=== PATIENT | female | born 1970 | race Caucasian/White ===

== ENCOUNTER 2025-04-17 10:46 | Day surgery (SDC) | payer OTHER, SELFPAY ==
[2025-04-12 12:58] VITALS: BMI 34.0
[2025-04-17] VITALS (7 sets, daily range): BP systolic 126–153; BP diastolic 61–89; PULSE 79–92; RESP 14–17; TEMP 36.3–36.5; O2SAT 96–99
[2025-04-17] MEDS: LACTATED RINGERS 1,000 ML 42 ML IV ×2 (11:43→15:15)
--- NOTE | 2025-04-17 14:20 | PM.PREOP ---
Pre-operative Note COVID-19 COVID-19 status: Not tested Interval Note History & Physical reviewed/Exam performed by Physician: Yes Changes to H&P: No
[2025-04-17] MEDS: SCOPOLAMINE 1 PATCH TOP (15:18)
--- NOTE | 2025-04-17 15:22 | SUR.OPER ---
Supine on padded OR bed, head on pillow, arms secured on padded arm boards at <90 degrees abduction, legs uncrossed, safety belt at thigh, tape over blanket over lower legs. Arthroscopy knee positioner on operative side. All pressure points padded and protected.
[2025-04-17] MEDS: SODIUM CHLORIDE IRRIG SOLUTION 3,000 ML, EPINEPHrine 3 MG IRR (15:31)
[2025-04-17] MEDS: ACETAMINOPHEN IV 1,000 MG/100 ML VIAL 400 MG IV (15:45)
--- NOTE | 2025-04-17 15:54 | PM.OP.1 ---
Operative Date/Time/Diagnoses Date of procedure: 04/17/25 Time of procedure: 03:00 Pre-op diagnosis: see below Post-op diagnosis: other (see below) Procedure & Clinicians Procedure: 1) left knee fat pad debridement 2) Medial femoral chondroplasty and patella chondroplasty Same procedure(s) as scheduled: Yes Surgeon: Aileen Valenzuela Assisted?: Yes Satellite Television Installer: Sheri Mccray Anesthesia Type: General Operative Notes Findings: see below Closure Type: primary Specimen(s): none sent Applied: none Estimated Blood Loss (mL): 10 Blood products transfused: none Tourniquet time (min): 21 Procedure in detail: Preoperative diagnosis: Left Medial meniscus root tear Procedure performed: 1) left knee fat pad debridement 2) Medial femoral chondroplasty and patella chondroplasty Postoperative diagnosis: 1) left knee exuberant fat pad 2) medial femoral condyle chondroplasty Primary Surgeon: Aileen Valenzuela, DO Satellite Television Installer:? Sheri Mccray PA-C Anesthesia: General LMA EBL: 10 ml Tourniquet: ?21 minutes @ 250 mmHg Implants: none Indication For Surgery: ?See Pre-op H&P Examination Under Anesthesia: ROM equal to the contralateral side. Grade I Kinza Stable to varus and valgus stressing at 0 & 30 degrees. 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 Medial femoral condyle cartilage: grade II chondromalacia? Medial tibial plateau cartilage: : intact? Medial meniscus:? intact ACL: intact PCL: intact Lateral femoral condyle cartilage: intact Lateral tibial plateau cartilage: intact Lateral meniscus: intact Procedure in Detail: The patient was met in the pre-operative hold area. Consent was verified and operative extremity was signed. The patient was brought back to the operating room. The patient was placed supine position on the operating table. A general anesthetic was administered. A well-padded tourniquet was placed on the thigh. An exam under anesthesia was performed with the above findings.? The lower extremity was then prepped and draped in the usual sterile fashion. A timeout was performed per protocol. All members of the operating team were in agreement, and we proceeded. The Esmarch was used to exsanguinate the limb and the tourniquet was inflated. An 11 blade scalpel was used to make an anterolateral arthroscopic portal. The arthroscope was introduced into the knee and the anteromedial portal was created under direct visualization using needle localization. A diagnostic arthroscopy was performed with the above-stated findings.? The medial meniscus was probed and found to be stable.? The lateral meniscus was found to be stable.? The fat pad was throroughly debrided and a chondroplasty was performed. The wounds were irrigated.? The incisions were closed with Nylon sutures. ?A sterile dressing was applied. The patient was awakened and transferred to the recovery room in stable condition. ?30 cc of 0.5% Marcaine was infiltrated at the end of the case. An porcelain buildup assistant was utilized for positioning, and closing. Postoperative Plan: Same day discharge Weigthbearing as tolerated. Remove dressing in [address]aids over incision sites. Physical therapy to start after surgery. Follow up at 2 weeks for suture removal. Complications: none Post-operative Condition: stable Disposition: PACU
== END 2025-04-17 16:27 | disposition home or self-care (01) ==
PROVIDERS: PCP Nurse Practitioner Family; Referring Provider Nurse Practitioner Family; Visit Provider Orthopaedic Surgery
PROC: (CPT 29870; principal; 2025-04-17 12:45)
DX: M22.42 Chondromalacia patellae, left knee (principal); I10 Essential (primary) hypertension; E78.5 Hyperlipidemia, unspecified; E11.9 Type 2 diabetes mellitus without complications; F17.290 Nicotine dependence, other tobacco product, uncomplicated; Z79.85 Long-term (current) use of injectable non-insulin antidiabetic drugs
CPT/HCPCS: 29877; J0131; J0165; J0689; J1100; J2250; J2405; J2704; J3010; J7120